=== PATIENT | male | born 1945 | race Caucasian/White ===

== ENCOUNTER 2019-07-21 13:52 | Outpatient (CLI) | payer MEDICARE, SELFPAY ==
--- NOTE | 2019-07-21 14:05 | MR_ITS ---
WS: [id number] MRI LUMBAR SPINE NONCONTRAST TECHNIQUE: Sagittal T1, T2 and STIR imaging. Axial T1 and T2 imaging. 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 No acute compression. Disc bulging worse at L2-3 with progression since 2018. L1-L2: Normal. L2-L3: Mild disc bulging with a right pericentral disc protrusion. This is progressed since 2018. Mil d central canal stenosis. Impingement on the traversing right L3 nerve root. Narrowing of the right s ubarticular recess. Mild right greater than left foraminal narrowing. Moderate facet arthropathy. L3-L4: Mild disc bulging with slight effacement of ventral thecal sac. Narrowing subarticular recess bilaterally. Moderate facet arthropathy. Spinal canal is patent. Moderate right and mild left foramin al narrowing. L4-L5: Mild disc bulging with slight effacement of the ventral thecal sac. Narrowing subarticular rec ess bilaterally. Moderate facet arthropathy. Mild right greater than left foraminal narrowing. L5-S1: Disc osteophyte complex with endplate ridging eccentric to the left. Prominent left eccentric osteophytes impinge the exiting left L5 nerve root. Moderate left foraminal narrowing. Right foramen is patent. Spinal canal is patent. Mild facet arthropathy at this level. Small right renal cyst. Mild central canal stenosis in the cervical spine at C6-C7 with a small centr al disc osteophyte protrusion. Visualized pelvic bony structures: Normal. Paravertebral soft tissues: Normal. MR/MR lumbar spine wo con* [id number] IMPRESSION: 1. Disc bulging L2-3 has progressed since the prior examination with a small r ight pericentral protrusion. Impingement on the traversing right L3 nerve root with mild central canal stenosis. Mild right foraminal narrowing at this level. 2. Moderate right L3-4 foraminal narrowing impinges the exiting L3 nerve root. Recommend correlation for L3 nerve root symptoms. 3. Left eccentric disc osteophyte complex L5-S1 impinges the exiting left L5 n erve root with moderate left foraminal narrowing. 4. Mild right L4-5 foraminal narrowing.
--- NOTE | 2019-07-21 14:05 | XR_ITS ---
WS: [id number] LUMBAR SPINE FLEXION AND EXTENSION TECHNIQUE: 3 views of the lumbar spine: Lateral neutral, flexion, and extension views. 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 FINDINGS: Normal lumbar alignment on the neutral view. Trace anterolisthesis L4 on L5 measuring 1 mm on the neutral view. This increases slightly in flexion to 3.7 mm and decreases to neutral on extension. Mild flexion instability L4-5. Disc space narrowing worse at L3-4 and L5-S1. Moderate facet arthropathy L5-S1 with bony foraminal narrowing.. XR/XR lumbar spine f/e only [id number] IMPRESSION: 1. Mild flexion instability L4-5. 2. Disc space narrowing worse at L3-L4 and L5-S1.
== END 2019-07-21 13:53 | disposition home or self-care (01) ==
PROVIDERS: Family Provider Family Medicine; PCP Family Medicine; Visit Provider Licensed Practical Nurse
DX: M51.17 Intervertebral disc disorders with radiculopathy, lumbosacral region (principal); M53.2X6 Spinal instabilities, lumbar region; M25.78 Osteophyte, vertebrae; M48.061 Spinal stenosis, lumbar region without neurogenic claudication
CPT/HCPCS: 72120; 72148

== ENCOUNTER → 2019-08-23 13:10 | Outpatient (BNVA) | payer MEDICARE, SELFPAY | PROVIDERS: PCP Family Medicine; Referring Provider Licensed Practical Nurse; Visit Provider Psychiatry & Neurology Neurology | DX: M54.5 Low back pain (principal); M54.17 Radiculopathy, lumbosacral region; M79.604 Pain in right leg; M79.605 Pain in left leg | CPT/HCPCS: 95886; 95909 ==

== ENCOUNTER 2022-07-03 17:09 | Emergency (ER) | payer MEDICARE, SELFPAY ==
[2022-07-03 17:21] VITALS: BP 139/63; PULSE 76; RESP 18; TEMP 37.5; O2SAT 93; BMI 34.1
--- NOTE | 2022-07-03 17:36 | USR_ITS ---
PROCEDURE INFORMATION: Exam: US Duplex Left Lower Extremity Veins, Limited Exam date and time: 07/03/2022 5:49 PM Age: 76 years old Clinical indication: Pain; Leg, lower; Left; Additional info: Calf pain and swelling x2 months TECHNIQUE: Imaging protocol: Real-time Duplex ultrasound of the Left Lower Extremity with 2-D gibson scale, color Doppler flow and spectral waveform analysis with image documentation. Limited exam focused on the left lower extremity veins. COMPARISON: No relevant prior studies available. FINDINGS: Occlusive thrombus seen within the proximal profunda femoral vein. There is nearly occlusive thrombus within the proximal superficial femoral vein. The more distal superficial femoral vein is of diminished caliber and noncompressible suggesting occlusive thrombus which extends through the popliteal vein and into the posterior tibial and peroneal calf veins. US/[place] [id number] IMPRESSION: Extensive DVT with occlusive thrombus within the proximal profunda femoral vein, nearly occlusive thrombus within the proximal superficial femoral vein, and occlusive thrombus within the distal superficial femoral vein through the popliteal vein and calf veins. Given the diminished caliber of the distal superficial femoral vein, there is likely an acute on chronic component of the DVT.
--- NOTE | 2022-07-03 18:50 | ED_ITS ---
HPI - Extremity Problem General: Chief complaint: Extremity Problem,Nontraumatic Stated complaint: Dr Dominique sent for possible blood clots in legs Time Seen by Provider: 07/03/22 18:45 History of Present Illness: 76-year-old male patient comes in today with left calf pain for over 1 month now. Patient was seen by his primary care provider today and was recommended to come to the ER for further evaluation to rule out DVT. Patient has some chronic medical problems including heart failure, and low back pain. Patient denies any chronic kidney disease. Patient appears nontoxic. Patient denies any chest pain. Associated symptoms: Deny chest pain or fever(s) Review of Systems Const: Denies: fever(s) Card: Denies: chest pain Resp: Reports: dyspnea (Chronic) Musc: Reports: extremity pain and extremity swelling Physical Exam Const: COMMON NORMALS: alert HENMT: COMMON NORMALS: normocephalic HEAD & SCALP: normocephalic Neck/C-Spine: COMMON NORMALS: full ROM Chest: COMMONS NORMALS: normal palpation of entire chest wall Resp: COMMON NORMALS: normal respiratory effort AUSCULTATION: rhonchi (Upper airway noise) Cardio: COMMON NORMALS: regular rate and regular rhythm RATE: regular rate RHYTHM: regular rhythm Extremity: COMMON NORMALS: full ROM LEFT LOWER EXTREMITY: Yes lower leg (Superficial phlebitis noted, calf tenderness) Left lower leg: Yes inspection, Yes palpation and Yes neurovascular exam Neuro: SENSORIUM/ORIENTATION: Yes alert Skin: COMMON NORMALS: turgor normal GENERAL SKIN EXAM: turgor normal Course Vital Signs: Vital signs: Vital Signs Temperature 99.5 F 07/03/22 17:21 Pulse Rate 76 07/03/22 17:21 Respiratory Rate 18 07/03/22 17:21 Blood Pressure 139/63 07/03/22 17:21 Pulse Oximetry 93 07/03/22 17:21 Oxygen Delivery Me thod 07/03/22 17:21 MDM - Extremity (Nontraumatic) Medical Decision Making 76-year-old male patient comes in today for complaints of left calf pain and tenderness for a little over 1 month. Patient denies any chest discomfort or abnormal shortness of breath. Patient appears nontoxic. Vital signs are normal. We do note a linear red area to the left inner calf, tenderness on palpation of the calf, distal pulses intact. Differential diagnosis includes superficial phlebitis, DVT, cellulitis. Ultrasound of the extremity noted a DVT. Patient be started on Eliquis. Recommend follow-up with primary care in 1 week for recheck. Return to ED for severe chest pain or increased shortness of breath. Patient reported understanding. Lab Data 07/03/22 19:45 Radiology Impressions Venous Duplex 07/03/22 17:36 IMPRESSION: Extensive DVT with occlusive thrombus within the proximal profunda femoral vein, nearly occlusive thrombus within the proximal superficial femoral vein, and occlusive thrombus within the distal superficial femoral vein through the popliteal vein and calf veins. Given the diminished caliber of the distal superficial femoral vein, there is likely an acute on chronic component of the DVT. ADDENDUM: 07/03/221852 Findings were discussed with Dr. 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 Laboratory Results Sodium 135 mmol/L (136-145) L 07/03/22 19:45 Potassium 4.2 mmol/L (3.5-5.1) 07/03/22 19:45 Chloride 100 mmol/L (98-107) 07/03/22 19:45 Carbon Dioxide 24 mmol/L (22-29) 07/03/22 19:45 Anion Gap 15.2 (5-19) 07/03/22 19:45 BUN 32 mg/dL (8-23) H 07/03/22 19:45 Creatinine 1.7 mg/dL (0.7-1.2) H 07/03/22 19:45 GFR Calculation Not Reportable 07/03/22 19:45 Glucose 115 mg/dL (65-115) 07/03/22 19:45 Calculated Osmolality 288 mOsm/kg (285-295) 07/03/22 19:45 Calcium 8.7 mg/dL (8.5-10.5) 07/03/22 19:45 Discharge Plan Discharge Patient Disposition: Home Clinical Impression: Deep vein thrombosis of lower extremity Qualifiers: Affected thrombotic vein of extremity: unspecified vein of extremity Ch ronicity: acute Laterality: left Qualified Code(s): I82.402 - Acute embolism and thrombosis of unspecified deep veins of left lower extremity Condition: Stable Prescriptions: New Eliquis DVT-PE Treat 30D Start 5 mg (74 tabs) tablets,dose pack See Rx Instructions .ROUTE .COMPLEX Qty: 74 0RF Rx Instructions: orally per package directions Discharge Orders: Discharge ED (Routine); Ordered 07/03/22 Ordered By: Dorian Flaherty Referrals: Donnell Dominique, [Primary Care Provider] - Discharge Diet: Usual diet Discharge Activity: Increase activity as tolerated Patient Instructions: Apixaban (By mouth) (Eliquis), Deep Vein Thrombosis (ED) Activity Restrictions/Additional Instructions: Take medication as directed. Follow-up with primary care in 1 week for recheck. Return to ED for new concerns or worsening symptoms such as severe chest pain and severe shortness of breath. 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
[2022-07-03 20:20] LABS: Anion Gap 15.2 (5-19); Blood Urea Nitrogen 32 mg/dL (8-23); Calcium 8.7 mg/dL (8.5-10.5); Carbon Dioxide 24 mmol/L (22-29); Chloride 100 mmol/L (98-107); Glucose 115 mg/dL (65-115); Osmolality Calculated 288 mOsm/kg (285-295); Potassium 4.2 mmol/L (3.5-5.1); Sodium 135 mmol/L (136-145)
[2022-07-03] MEDS: apixaban 5 mg Tablet 10 MG PO (21:27)
[2022-07-03 21:30] VITALS: BP 133/77; PULSE 79; RESP 20; O2SAT 92
== END 2022-07-03 21:32 | disposition home or self-care (01) ==
PROVIDERS: Emergency Provider Nurse Practitioner Family; PCP Family Medicine
DX: I82.402 Acute embolism and thrombosis of unspecified deep veins of left lower extremity (principal)
CPT/HCPCS: 80048; 93971; 99284

== ENCOUNTER 2022-10-21 09:48 | Emergency (ER) | payer MEDICARE, SELFPAY ==
[2022-10-21 09:53] VITALS: BP 128/79; PULSE 71; RESP 18; TEMP 36.9; O2SAT 90; BMI 32.8
--- NOTE | 2022-10-21 12:01 | USCV_ITS ---
James Fay Age: 77 Gender: M : 1945 Exam Date: 10/21/2022 12:23 Ordering Phys: Carson Maloney MD Technologist: JON [place] [facility] [place] LT LEG PAIN, SWELLING, REDNESS HISTORY: Patient has history of. DVT. Lower extremity swelling. Lower extremity pain. PROCEDURES: Venous duplex imaging was performed in only the left lower extremity. The following venous structures were evaluated: common femoral vein, profunda vein, proximal portion of the greater saphenous vein, superficial femoral vein, and the popliteal vein. In addition, the posterior tibial and peroneal trunk were evaluated. Serial compression, augmentation maneuvers, and spectral Doppler flow evaluation were performed. FINDINGS: Occlusive DVT seen mid thigh GSV to GSV/CFV junction Occlusive DVT seen Prox FV to Dist FV CONCLUSIONS Occlusive DVT LLE proximal to distal CFV, femoral vein and profunda. Additional thrombus mid thigh GSV extending to CFV junction Prelim to Dr Sutherland at time of study Saurabh Caicedo MD (Electronically Signed) Final Date: 21 October 2022 13:57 S
--- NOTE | 2022-10-21 13:18 | ED_ITS ---
HPI - Extremity Problem General: Chief complaint: Extremity Problem,Nontraumatic Stated complaint: left leg pain, possible blood clot Time Seen by Provider: 10/21/22 13:12 Source: patient Mode of arrival: ambulatory History of Present Illness: 77-year-old male who presents to the emergency room at the direction of his PCP after concern for left leg DVT. He was diagnosed with a DVT In June 2022 he took Eliquis for 30 days when the pack ran out he did not refill his prescription. He denies any chest pain or shortness of breath. MD Complaint: extremity pain and extremity swelling Onset (ago): day(s) Pain Consistency: constant Location: left and lower extremity Quality: aching Radiation: none Relieving factors: nothing Exacerbating factors: weight bearing, walking and palpation Associated symptoms: Deny arthralgias, chest pain, fever(s), myalgias, rash or short of breath Review of Systems Const: Denies: fever(s), chills, fatigue or malaise ENMT: Denies: throat pain, ear or mastoid pain, nasal discharge or nasal congestion Card: Denies: chest pain Resp: Denies: dyspnea, productive cough or non-productive cough GI: Denies: abdominal pain, nausea, vomiting, hematemesis, coffee ground emesis, diarrhea, constipation, bloating, hematochezia or melena : Denies: flank pain, dysuria, urinary frequency or urinary urgency Skin/Breast: Denies: rash Physical Exam Const: GENERAL APPEARANCE: cooperative and comfortable ORIENTATION/CONSCIOUSNESS: Yes awake, Yes oriented to person, Yes oriented to place and Yes oriented to time HENMT: COMMON NORMALS: normocephalic, atraumatic and hearing grossly normal bilaterally HEAD & SCALP: normocephalic and atraumatic Resp: COMMON NORMALS: normal respiratory effort, No retractions, No use of accessory muscles and clear to auscultation bilaterally AUSCULTATION: clear to auscultation bilaterally Cardio: COMMON NORMALS: regular rate, regular rhythm and No murmurs present (Cardio) RATE: regular rate RHYTHM: regular rhythm GI: COMMON NORMALS: Soft to palpation and No hepatosplenomegaly present AUSCULTATION: Yes normoactive bowel sounds PALPATION: Yes Soft to palpation, No Tenderness to palpation present (GI), No Guarding due to palpation present (GI) and Yes No hepatosplenomegaly present Extremity: COMMON NORMALS: normal to inspection, capillary refill normal, no clubbing, cyanosis or edema, no calf tenderness and no pedal edema Neuro: SENSORIUM/ORIENTATION: Yes oriented to person, Yes oriented to place and Yes oriented to time Skin: COMMON NORMALS: no rashes or lesions noted GENERAL SKIN EXAM: no rashes or lesions noted Course Vital Signs: Vital signs: Vital Signs Temperature 98.4 F 10/21/22 09:53 Pulse Rate 71 10/21/22 09:53 Respiratory Rate 18 10/21/22 09:53 Blood Pressure 128/79 10/21/22 09:53 Pulse Oximetry 90 10/21/22 09:53 Oxygen Delivery Me thod Room Air 10/21/22 09:53 MDM - Extremity (Nontraumatic) Medical Decision Making Unfortunately patient has not continued on the Eliquis. He has a acute DVT. Discussed with the patient the importance of long-term management with the Eliquis may need to be on it for at very least 6 to 9 months possibly longer. He should continue on until he is advised by his primary care for his care physician to stop. Gave him a 30-day pack to get started and advised him to follow-up with his doctor before that pack runs out to get a refill. If he gets any chest pain or shortness of breath return to the emergency room Medical Records I reviewed the patient's medical records. Lab Data I reviewed the patient's lab results. Discharge Plan Discharge Patient Disposition: Home Clinical Impression: Deep vein thrombosis of lower extremity Condition: Stable Prescriptions: New Eliquis DVT-PE Treat 30D Start 5 mg (74 tabs) tablets,dose pack See Rx Instructions .ROUTE .COMPLEX Qty: 74 0RF Rx Instructions: orally per package directions Discontinued Eliquis DVT-PE Treat 30D Start 5 mg (74 tabs) tablets,dose pack See Rx Instructions .ROUTE .COMPLEX Qty: 74 0RF Rx Instructions: orally per package directions Discharge Orders: Discharge ED (Routine); Ordered 10/21/22 Ordered By: Jose Aguirre Referrals: Donnell Dominique DO [Primary Care Provider] - Discharge Diet: Usual diet Discharge Activity: Increase activity as tolerated Patient Instructions: Opioid Safety, Pain Management Activity Restrictions/Additional Instructions: You are seen today for an acute deep venous thrombosis. It is very important that you stay on the Eliquis long-term until your primary care doctor tells you that it is okay to stop. 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
[2022-10-21 14:11] LABS: Basophils % 0.6 %; Eosinophils % 0.3 %; Hematocrit 43.8 % (42.0-52.0); Hemoglobin 13.4 g/dL (11.7-16.6); Lymphocytes # 1.2 10^3/uL (0.8-4.8); Lymphocytes % 16.2 %; Mean Corpuscular HGB Conc 30.6 g/dL (30.0-36.0); Mean Corpuscular Hemoglobin 31.7 pg (28.0-34.0); Mean Corpuscular Volume 103.5 fl (80-94); Monocytes # 0.6 10^3/uL (0.2-0.9); Monocytes % 8.7 %; Neutrophils # 5.26 10^3/uL (1.8-7.7); Neutrophils % 73.9 %; Nucleated Red Blood Cells % 0 %; Platelet Count 346 10^3/cmm (130-400); Red Blood Count 4.23 10^6/uL (4.1-5.3); Red Cell Distribution Width 13.7 % (12.1-15.1); White Blood Count 7.1 10^3/uL (4.0-10.0)
[2022-10-21 14:27] LABS: Alanine Aminotransferase 15 U/L (0-41); Albumin Level 3.6 g/dL (3.5-5.2); Alkaline Phosphatase 84 U/L (40-130); Anion Gap 12.6 (5-19); Aspartate Amino Transferase 18 U/L (0-40); Blood Urea Nitrogen 25 mg/dL (8-23); Calcium 8.9 mg/dL (8.5-10.5); Carbon Dioxide 28 mmol/L (22-29); Chloride 97 mmol/L (98-107); Globulin 4.4 g/dL (1.3-4.6); Glucose 97 mg/dL (65-115); Osmolality Calculated 280 mOsm/kg (285-295); Potassium 4.6 mmol/L (3.5-5.1); Sodium 133 mmol/L (136-145); Total Bilirubin 0.4 mg/dL (0.15-1.2)
== END 2022-10-21 14:10 | disposition home or self-care (01) ==
PROVIDERS: Emergency Provider Family Medicine; PCP Family Medicine
DX: I82.4Y2 Acute embolism and thrombosis of unspecified deep veins of left proximal lower extremity (principal); I82.412 Acute embolism and thrombosis of left femoral vein
CPT/HCPCS: 36415; 80053; 85025; 93971; 99284